=== PATIENT | male | born 1960 | race Caucasian/White ===

== ENCOUNTER 2016-07-12 13:27 | Emergency (ER) | payer OTHER ==
[~2016-07-12] VITALS: Ht 177.8 cm; Wt 91.4 kg
[2016-07-12 15:24] VITALS: BP 126/77
== END 2016-07-12 15:31 | disposition home or self-care (01) ==
LOC: EME 13:27
PROC: 0HQ1XZZ Repair Face Skin, External Approach (ICD-10-PCS; principal; 2016-07-12)
DX: S01.112A Laceration without foreign body of left eyelid and periocular area, initial encounter (principal); W10.1XXA Fall (on)(from) sidewalk curb, initial encounter
CPT/HCPCS: 99281; 99284